=== PATIENT | female | born 1995 ===

== ENCOUNTER 2023-04-03 01:02 | Outpatient (CLI) ==
[~2023-04-03] VITALS: Ht 162.6 cm; Wt 114.3 kg
[2023-04-03] MEDS ORDERED: ASPI81CH33 PO (01:20)
[2023-04-03] MEDS ORDERED: PRENTAB9 PO (01:20)
[2023-04-03 01:31] VITALS: BP 101/58
[2023-04-03] MEDS ORDERED: METOCLOPRAMIDE 10MG TAB PO ONE (02:00)
[2023-04-03] MEDS ORDERED: diphenhydrAMINE 50MG/ML VIAL IM ONE (02:00)
[2023-04-03] MEDS ORDERED: diphenhydrAMINE 25MG CAP PO ONE (03:00)
== END 2023-04-03 03:20 | disposition home or self-care (01) ==
LOC: M LDO 01:02
PROVIDERS: ATTEND Obstetrics & Gynecology
DX: O26.893 Other specified pregnancy related conditions, third trimester (principal); R21 Rash and other nonspecific skin eruption; R51.9 Headache, unspecified; O24.419 Gestational diabetes mellitus in pregnancy, unspecified control; Z3A.28 28 weeks gestation of pregnancy
CPT/HCPCS: 59025; 76815; G0463

== ENCOUNTER 2023-05-05 10:25 | Outpatient (CLI) ==
[~2023-05-05] VITALS: Ht 162.6 cm; Wt 115.4 kg
[~2023-05-05 10:25] MED LIST: ASPI81CH33 PO; PRENTAB9 PO
[2023-05-05 10:44] VITALS: BP 120/58
[2023-05-05] MEDS ORDERED: TUMS500C PO (11:02)
[2023-05-05] MEDS ORDERED: HOME MED LIST COMPLETE! XX SCH (11:05)
== END 2023-05-05 11:52 | disposition home or self-care (01) ==
LOC: M LDO 10:25
PROVIDERS: ATTEND Obstetrics & Gynecology
DX: O36.8130 Decreased fetal movements, third trimester, not applicable or unspecified (principal); Z3A.32 32 weeks gestation of pregnancy; Z79.82 Long term (current) use of aspirin
CPT/HCPCS: 59025; G0463